=== PATIENT | male | born 1960 | race Hispanic/Latino ===

== ENCOUNTER 2020-10-29 08:37 | Day surgery (SDC) | payer BC ==
[2020-10-29] MEDS ORDERED: ASPIRIN EC 325 MG TAB PO SCH (09:30)
[2020-10-29] MEDS ORDERED: MIDAZOLAM 2 MG/2 ML INJ ONE (09:38)
[2020-10-29] MEDS ORDERED: HEPARIN 10,000 UNITS/10 ML VIAL ONE (09:38)
[2020-10-29] MEDS ORDERED: HEPARIN/NS 5000 UNIT/500ML 1,000 ML IR ONE (09:38)
[2020-10-29] MEDS ORDERED: VERAPAMIL 5 MG/2 ML INJ ONE (09:38)
[2020-10-29] MEDS ORDERED: fentaNYL 100 MCG/2 ML INJ ONE (09:38)
[2020-10-29] MEDS ORDERED: NITROGLYCERIN SYRINGE 3 ML ONE (09:39)
[2020-10-29] MEDS: SODIUM CHLORIDE 0.9% 500 ML 500 ML IV SCH ×2 (10:04→10:28)
[2020-10-29] MEDS: LIDOCAINE (2%) 20 MG/1 ML VIAL 20 ML MDV INFILTRATI ONE ×2 (10:28→10:29)
--- NOTE | 2020-10-29 11:11 | Short Stay Summary ---
Short Stay Documentation Date of service: 10/29/20 - History H&P: obtained from office - Allergies and Medications Current Medications: Allergies codeine Allergy (Unverified 10/29/20 08:45) Itching Home Medications Medication Instructions Recorded Confirmed Last Taken Type Chlorthalidone [Thalitone] 25 mg PO DAILY 10/29/20 10/29/20 10/28/20 History 25 mg Losartan Potassium 100 mg PO DAILY 10/29/20 10/29/20 10/28/20 History 100 mg Metoprolol [Lopressor] 25 mg PO DAILY 10/29/20 10/29/20 10/28/20 History 25 mg amLODIPine 5 mg PO DAILY 10/29/20 10/29/20 10/29/20 06:30 History 5 mg traZODone [Desyrel] 25 mg PO HS 10/29/20 10/29/20 10/28/20 History 25 mg Active Medications Aspirin (Aspirin Ec 325 Mg Tab) 325 mg PO ONCE JEFF Stop: 10/29/20 12:30 Last Admin: 10/29/20 10:03 Dose: 325 mg Documented by: Sodium Chloride (Nacl 0.9% 500 Ml) 500 mls @ 50 mls/hr IV DIRECT JEFF Stop: 10/29/20 19:59 Last Admin: 10/29/20 10:28 Dose: 50 mls/hr Documented by: - Brief post op/procedure progress note Date of procedure: 10/29/20 Pre-op diagnosis: abnormal stress test Post-op diagnosis: other (normal coronaries) Anesthesia: local Estimated blood loss: none Condition: stable - Disposition Condition at discharge: Good Disposition: [id number] TO HOME OR SELFCARE - Discharge Diagnoses (1) Normal coronary angiogram Status: Chronic (2) HTN (hypertension) Status: Chronic Short Stay Discharge Plan Activity: advance as tolerated Diet: low fat, low cholesterol, low salt Wound: open to air, keep clean and dry, per your surgeon's advice Follow up with: REGINA BARTON MD [Primary Care Provider] - 7 Days Forms: CardCath PCI D/C Instructions Prescriptions: AtorvaSTATin [Lipitor] 10 mg PO QHS #90 tab
--- NOTE | 2020-10-29 11:12 | Cardiac Catherization Report ---
REFERRING PHYSICIAN: Dr. Jhony Dalal. INDICATIONS FOR PROCEDURE: The patient is a pleasant 60-year-old gentleman with history of hypertension, having some shortness of breath, found to have an abnormal stress test, referred for left heart catheterization. Risks, benefits, alternatives discussed at length prior to obtaining informed consent. PROCEDURE IN DETAIL: The patient was brought to catheterization lab in a postabsorptive state, prepped and draped in sterile fashion. Lon test in right hand was normal. A 2 mL of 2% lidocaine used to anesthetize the right wrist. A standard 6-[place] hydrophilic sheath used to cannulate the right radial artery via modified Seldinger technique. All exchanges performed to exchange a J-tip guidewire. JL3.5 catheter used to engage the left main. No dampening or ventricularization. Cineangiography performed in all projections. JR4 catheter used to cross the aortic valve under fluoroscopic guidance. Left ventriculography performed in 30 AN and 30 ERROL projections via hand injections, catheter flushed. Manual pullback performed with continuous pressure monitoring. Catheter used to engage the right coronary. No dampening or ventricularization. Cineangiography performed in all projections. Next, catheter removed from the body of wire, sheath removed. Manual pressure was used to achieve hemostasis. I directly supervised the administration of moderate sedation with fentanyl and Versed from 10:20 a.m. to 10:45 a.m. No immediate complications. DATA: Aortic pressure is 140/80, LV pressure is 140. LVEDP of 20 mmHg. Left ventriculography revealed normal systolic performance with estimated ejection fraction of 55-60%. No evidence of aortic stenosis. CORONARY ANATOMY: This is a codominant system. Right coronary is a moderate sized vessel, courses AV groove, distally bifurcates in the posterior descending and posterolateral branches. Scattered luminal irregularities are noted. CIARA 2 flow throughout the coronary tree. The LAD and left circumflex have separate ostia. Left circumflex is a moderate sized vessel, courses AV groove. No significant disease. CIARA 2 flow. LAD is a large vessel, courses anterior intergroove, wraps around the apex, scattered luminal irregularities, but no obstructive disease identified. CIARA 2 flow. No angiographic evidence of significant epicardial coronary artery disease in this codominant system. A separate ostium of the left circumflex and LAD with diffuse CIARA 2-2.5 flow, which may be indicative of endothelial dysfunction. CONCLUSIONS: 1. Normal left ventricular systolic performance, estimated ejection fraction of 55-60%. 2. No evidence of aortic stenosis. 3. Normal LVEDP. Needs better blood pressure control. States his blood pressure is okay at home. Follow up with Dr. Dalal in the office. Low salt diet. Discussed needs to lose weight. Needs a sleep study. He sees Dr. Jean as his primary doctor. We will start a statin therapy for questionable endothelial dysfunction. Side effect profile discussed. Follow up with Dr. Dalal in the office. Will need a CMP and lipid after next visit. JOB# [id number] SBM/NTS
[2020-10-29 13:24] VITALS: BP 135/62
== END 2020-10-29 13:30 | disposition home or self-care (01) ==
LOC: CATHLABREC 08:37
PROVIDERS: ATTEND Internal Medicine
DX: R06.02 Shortness of breath (principal); R94.39 Abnormal result of other cardiovascular function study; I10 Essential (primary) hypertension; G62.9 Polyneuropathy, unspecified; E78.00 Pure hypercholesterolemia, unspecified; Z88.5 Allergy status to narcotic agent; Z87.891 Personal history of nicotine dependence; Z79.899 Other long term (current) drug therapy; Z98.890 Other specified postprocedural states; E66.9 Obesity, unspecified; Z68.35 Body mass index [BMI] 35.0-35.9, adult
CPT/HCPCS: 93005; 93458; 99156; 99157; C1894; J1644; J2250; J3010; J7040; Q9967